=== PATIENT | male | born 1995 | race Caucasian/White ===

== ENCOUNTER 2020-11-22 22:12 | Emergency (ER) | payer SELFPAY ==
[~2020-11-22] VITALS: Ht 177.8 cm; Wt 66.5 kg
[2020-11-22 22:27] VITALS: BP 117/53
[2020-11-22] MEDS ORDERED: METH2.5T PO (22:34)
[2020-11-22] MEDS ORDERED: [UNRECOGNIZED DRUG - CODE] PO (22:34)
[2020-11-22] MEDS ORDERED: TADA20TA43 PO (22:34)
--- NOTE | 2020-11-22 22:34 | ED EENT ---
History of Present Illness General Chief Complaint: Dental Problems/Pain Stated Complaint: DENTAL PAIN Source: patient Exam Limitations: no limitations History of Present Illness Date Seen by Provider: Nov 22, 2020 Time Seen by Provider: 22:10 Initial Comments Patient presents ER by private conveyance with chief complaint of left lower mandibular molar dental abscess swelling and difficulty with food and fluids. He is able to breathe normally. He has been using Tylenol and Motrin and started on antibiotics yesterday has taken 4 doses of Augmentin so far and not seeing improvement. He feels like the swelling around his jaw is a little bigger. He has plans to see a dentist on Tuesday of next week. Primary care by Dr. Leyva. He is on rituximab and methotrexate for dermatomyositis. No fevers nausea vomiting diarrhea. He eats yogurt with active culture routinely. Allergies and Home Medications Allergies Coded Allergies: banana (Verified Allergy, Unknown, 11/22/20) nut - unspecified (Verified Allergy, Unknown, 11/22/20) strawberry (Verified Allergy, Unknown, 11/22/20) Patient Home Medication List Home Medication List Reviewed: Yes Review of Systems Review of Systems Constitutional: No chills, No diaphoresis Eyes: Denies Blindness, Denies Blurred Vision Ears: Denies Dizziness, Denies Pain Nose: denies clots, denies epistaxis, denies pain Mouth: denies clots; pain, swelling Throat: denies pain, denies swelling Respiratory: No cough, No short of breath Past Clpmfil-Uckdqj-Hkxbvk Hx Patient Social History Alcohol Use: Denies Use Smoking Status: Never a Smoker Physical Exam Vital Signs Vital Signs - First Documented 11/22/20 22:27 Temp 37.2 Pulse 80 Resp 16 B/P (MAP) 117/53 (74) Pulse Ox 100 O2 Delivery Room Air Height, Weight, BMI Height: '" Weight: lbs. oz. kg; BMI Method: General Appearance: WD/WN, no apparent distress Eyes: bilateral eye normal inspection, bilateral eye PERRL, bilateral eye EOMI Ears: bilateral ear auricle normal, bilateral ear canal normal, bilateral ear TM normal Nose: normal inspection; No active bleeding Mouth/Throat: dental tenderness; No excessive drooling; mandibular swelling, other (Dental caries with acrylic fillings and proximalmost left mandibular molar has significant caries. There is soft tissue swelling lateral to the left lower portion of the mandible without fluctuance.) Neck: non-tender, full range of motion, supple, normal inspection Cardiovascular: normal peripheral pulses, regular rate, rhythm Respiratory: no respiratory distress, no accessory muscle use Neurologic/Psychiatric: alert, oriented x 3 Skin: normal color, warm/dry Procedures/Interventions Progress Alveolar nerve block left: Using the usual technique and a 25-gauge 1-1/2 inch needle we palpated the landmarks and applied the needle tip at the level of the alveolar nerve where it exits the medial portion of the mandible. We were unable to aspirate any blood so we injected 1/2 cc each of 1% lidocaine and half percent Marcaine. Patient tolerated procedure well. Progress/Results/Core Measures Results/Orders Vital Signs/I&O 11/22/20 22:27 Temp 37.2 Pulse 80 Resp 16 B/P (MAP) 117/53 (74) Pulse Ox 100 O2 Delivery Room Air Progress Progress Note : Time: 22:32 Progress Note Aseptic vital signs with no evidence of systemic disease at this time. Plan to give him a shot of Rocephin and offered a alveolar nerve block which he accepted. We will also give him some viscous lidocaine. Return precautions were discussed. Departure Impression Primary Impression: Dental abscess Disposition: 01 HOME, SELF-CARE Condition: Stable Departure-Patient Inst. Decision time for Depature: 22:40 Referrals: PAUL LEYVA MD (PCP/Family) Primary Care Physician Patient Instructions: Tooth Abscess (DC) Add. Discharge Instructions: You have a collection of bacteria known as an abscess under the tooth of your left mandible. It is difficult for antibiotics to get into this because there are no blood vessels penetrating the abscess and it will take several days for this to calm down. As long as it is not keeping you from swallowing or giving you a hard time breathing it is not an emergency. If it does start to cause swelling all the way down your neck pushing on your throat then you need to return to the ER for further evaluation otherwise expect some improvement over the next couple days on antibiotics. Follow-up with Dr. Leyva in the next couple days and he can reevaluate your dental infection while you are waiting to get in with a dentist for ultimate, surgical cure. You have received a dose of Rocephin/ceftriaxone tonight which will last about 24 hours and should help speed your recovery. Viscous lidocaine applied to gauze every 4 hours over the tooth as necessary to numb the pain. Tylenol 1000 mg every 8 hours as necessary for pain. Ibuprofen 800 mg every 8 hours as necessary for pain. All discharge instructions reviewed with patient and/or family. Voiced un derstanding. Scripts [viscous lidocaine] 2 % EA No Conflict Check 5 ML TOP Q4H PRN for PAIN-BREAKTHROUGH for 3 Days, #100 GM 0 Refills Prov: BARRY SEBASTIAN 11/22/20 BARRY SEBASTIAN Nov 22, 2020 22:34
[2020-11-22] MEDS ORDERED: cefTRIAXone 1,000 MG/2.86 ml vial (IM ONLY) IM STA (22:36)
[2020-11-22] MEDS ORDERED: viscous lidocaine TOP (22:41)
[2020-11-22] MEDS ORDERED: LIDOCAINE 2% VISCOUS 15 ML UDC PO ONE (22:45)
[2020-11-22] MEDS ORDERED: LIDOCAINE 1% INJ 20 ML 20 ML VIAL INJ ONE (22:45)
[2020-11-24] MEDS ORDERED: METH2.5T PO (10:40)
[2020-11-24] MEDS ORDERED: CLIN300C12 PO (10:40)
[2020-11-24] MEDS ORDERED: ACET1TAB43 PO (10:40)
== END 2020-11-22 22:50 | disposition home or self-care (01) ==
LOC: ER FS 22:16
DX: K04.7 Periapical abscess without sinus (principal)
CPT/HCPCS: 99284

== ENCOUNTER 2020-11-23 12:56 | Observation (INO) | payer SELFPAY ==
[~2020-11-23] VITALS: Ht 180 cm; Wt 62.8 kg
[~2020-11-23 12:56] MED LIST: METH2.5T PO; TADA20TA43 PO; [UNRECOGNIZED DRUG - CODE] PO; viscous lidocaine TOP
[2020-11-23] MEDS ORDERED: NS IV 1000 ML 1,000 ML IV STA (13:26)
[2020-11-23] MEDS ORDERED: KETOROLAC 30 MG/ML VIAL IVP STA (13:26)
[2020-11-23] MEDS ORDERED: CLINDAMYCIN 600 MG/50 ML IVPB 50 ML IV STA (13:26)
[2020-11-23] MEDS ORDERED: IOHEXOL 350 MG/ML 100 ML (OMNIPAQUE 350) VIAL IV ONE (13:45)
[2020-11-23] MEDS ORDERED: CATHETER FLUSH 10 ML SYR IV PRN (13:45)
[2020-11-23] MEDS ORDERED: HOLD METFORMIN - RECEIVED CONTRAST 20 ML VIAL IV SCH (13:45)
[2020-11-23] MEDS ORDERED: NS 100 ML (IVPB) BAG IV ONE (13:45)
--- NOTE | 2020-11-23 13:46 | ED EENT ---
History of Present Illness General Chief Complaint: Dental Problems/Pain Stated Complaint: TOOTH PAIN/SWELLING Nursing Triage Note: Patient reports he was seen in the ED last night for a left lower dental abscess, states he was given an antibiotic injection and told to return if his condition worsened. He reports he woke this morning with increased swelling and pain. Source: patient, old records History of Present Illness Date Seen by Provider: Nov 23, 2020 Time Seen by Provider: 12:58 Initial Comments 24-year-old male presenting with worsening pain and swelling to the left mandible and jaw. He was seen last night around 10:30 PM for an abscess and dental pain. He has had 2 days of Augmentin and today is the third day. He was given an IM Rocephin shot as well as a alveolar nerve block. He reports that this morning when he got up he was having increased swelling and pain and difficulty opening his mouth as well as swallowing. He feels like he cannot eat or treated because of the pain. He is concerned that the infection was getting worse. He recently had been on Rituximab and Methotrexate. He is worried that his infection is getting out of control. Timing/Duration: gradual Severity: severe Location: dental (left jaw) Prearrival Treatment: prescription meds Associated Symptoms: No change in hearing, No cough, No drooling, No ear drainage; facial pain/swelling, fever, malaise; No nasal congestion/drainage, No poor fluid intake; poor solids intake (due to pain with trying to chew); No sinus infection, No sore throat; tooth pain; No voice change Allergies and Home Medications Allergies Coded Allergies: banana (Verified Allergy, Unknown, 11/22/20) nut - unspecified (Verified Allergy, Unknown, 11/22/20) strawberry (Verified Allergy, Unknown, 11/22/20) Home Medications [viscous lidocaine] 2 % EA, 5 ML TOP Q4H PRN for PAIN-BREAKTHROUGH Prescribed by: BARRY SEBASTIAN on 11/22/20 7573 Patient Home Medication List Home Medication List Reviewed: Yes Review of Systems Review of Systems Constitutional: fever (subjective), malaise Eyes: No Symptoms Reported Ears: Pain (pain going into left ear) Nose: no symptoms reported Mouth: see HPI Throat: see HPI Respiratory: no symptoms reported Cardiovascular: no symptoms reported Gastrointestinal: no symptoms reported Musculoskeletal: no symptoms reported Skin: No change in color Neurological: Anxiety Hematologic/Lymphatic: No Symptoms Reported Past Yaurzih-Enhdyi-Uzwyfa Hx Past Med/Social Hx: Reviewed Nursing Past Med/Soc Hx Patient Social History Alcohol Use: Denies Use Smoking Status: Never a Smoker 2nd Hand Smoke Exposure: No Recent Infectious Disease Expo: No Recent Hopitalizations: No Seasonal Allergies Seasonal Allergies: No Past Medical History Surgeries: No Respiratory: No Cardiac: No Neurological: Yes Genitourinary: No Gastrointestinal: No Musculoskeletal: No Endocrine: No HEENT: No Cancer: No Psychosocial: No Integumentary: No Blood Disorders: No Physical Exam Vital Signs Vital Signs - First Documented 11/23/20 12:58 Temp 37.8 Pulse 87 Resp 16 B/P (MAP) 119/62 (81) Pulse Ox 98 O2 Delivery Room Air Height, Weight, BMI Height: '" Weight: lbs. oz. kg; 20.00 BMI Method: General Appearance: moderate distress (pt anxious and concerned about swelling to left mandible) Eyes: bilateral eye PERRL, bilateral eye EOMI Ears: bilateral ear auricle normal, bilateral ear canal normal, bilateral ear TM normal Mouth/Throat: pharynx normal, dental tenderness (left side along mandible), ma ndibular swelling; No tonsillar exudate; trismus Neck: supple, other (left submandibular swelling/pain) Cardiovascular: normal peripheral pulses, regular rate, rhythm Respiratory: chest non-tender, lungs clear, normal breath sounds, no respiratory distress, no accessory muscle use Gastrointestinal: normal bowel sounds, soft, no pulsatile mass Neurologic/Psychiatric: alert, oriented x 3 Skin: normal color, warm/dry Progress/Results/Core Measures Results/Orders Lab Results Laboratory Tests Test 11/23/20 13:41 Range/Units White Blood Count 7.1 4.3-11.0 10^3/uL Red Blood Count 4.93 4.35-5.85 10^6/uL Hemoglobin 13.0 L 13.3-17.7 G/DL Hematocrit 40 40-54 % Mean Corpuscular Volume 81 80-99 FL Mean Corpuscular Hemoglobin 26 25-34 PG Mean Corpuscular Hemoglobin Concent 32 32-36 G/DL Red Cell Distribution Width 15.7 H 10.0-14.5 % Platelet Count 194 130-400 10^3/uL Mean Platelet Volume 9.5 7.4-10.4 FL Immature Granulocyte % (Auto) 0 % Neutrophils (%) (Auto) 73 42-75 % Lymphocytes (%) (Auto) 10 L 12-44 % Monocytes (%) (Auto) 9 0-12 % Eosinophils (%) (Auto) 7 0-10 % Basophils (%) (Auto) 0 0-10 % Neutrophils # (Auto) 5.2 1.8-7.8 X 10^3 Lymphocytes # (Auto) 0.7 L 1.0-4.0 X 10^3 Monocytes # (Auto) 0.6 0.0-1.0 X 10^3 Eosinophils # (Auto) 0.5 H 0.0-0.3 10^3/uL Basophils # (Auto) 0.0 0.0-0.1 10^3/uL Immature Granulocyte # (Auto) 0.0 0.0-0.1 10^3/uL Sodium Level 139 135-145 MMOL/L Potassium Level 4.1 3.6-5.0 MMOL/L Chloride Level 104 98-107 MMOL/L Carbon Dioxide Level 27 21-32 MMOL/L Anion Gap 8 5-14 MMOL/L Blood Urea Nitrogen 9 7-18 MG/DL Creatinine 0.45 L 0.60-1.30 MG/DL Estimat Glomerular Filtration Rate > 60 BUN/Creatinine Ratio 20 Glucose Level 112 H 70-105 MG/DL Lactic Acid Level 1.03 0.50-2.00 MMOL/L Calcium Level 9.0 8.5-10.1 MG/DL Corrected Calcium 9.2 8.5-10.1 MG/DL Total Bilirubin 0.3 0.1-1.0 MG/DL Aspartate Amino Transf (AST/SGOT) 143 H 5-34 U/L Alanine Aminotransferase (ALT/SGPT) 113 H 0-55 U/L Alkaline Phosphatase 36 L 40-136 U/L C-Reactive Protein 3.70 H <0.50 MG/DL Total Protein 6.4 6.4-8.2 GM/DL Albumin 3.8 3.2-4.5 GM/DL My Orders Orders - DAVID CARDOZO MD Cbc With Automated Diff (11/23/20 13:24) Comprehensive Metabolic Panel (11/23/20 13:24) Blood Culture (11/23/20 13:24) Ed Iv/Invasive Line Start (11/23/20 13:24) Crp Fs (11/23/20 13:24) Lactic Acid Analyzer (11/23/20 13:24) Ct Maxillofacial W (11/23/20 13:24) Ns Iv 1000 Ml (Sodium Chloride 0.9%) (11/23/20 13:26) Ketorolac Injection (Toradol Injection) (11/23/20 13:26) Clindamycin 600 Mg/50 Ml Ivpb (Cleocin P (11/23/20 13:26) Iohexol Injection (Omnipaque 350 Mg/Ml 1 (11/23/20 13:45) Received Contrast (Hold Metformin- Contr (11/23/20 13:45) Sodium Chloride Flush (Catheter Flush Sy (11/23/20 13:45) Ns (Ivpb) (Sodium Chloride 0.9% Ivpb Bag (11/23/20 13:45) Medications Given in ED Current Medications Medications Dose Ordered Sig/Ilana Route Start Time Stop Time Status Last Admin Dose Admin Iohexol 100 ml ONCE ONCE IV 11/23/20 13:45 11/23/20 13:46 DC 11/23/20 13:50 75 ML Sodium Chloride 10 ml NEEDED PRN IV 11/23/20 13:45 11/23/20 15:44 DC 11/23/20 13:51 10 ML Sodium Chloride 100 ml ONCE ONCE IV 11/23/20 13:45 11/23/20 13:46 DC 11/23/20 13:51 80 ML Vital Signs/I&O 11/23/20 11/23/20 12:58 15:15 Temp 37.8 37.3 Pulse 87 67 Resp 16 18 B/P (MAP) 119/62 (81) 104/53 Pulse Ox 98 98 O2 Delivery Room Air Room Air Blood Pressure Mean: 81 Progress Progress Note #1: Progress Note Advised pt that with increased swelling will check labs with cultures and obtain CT scan to look for abscess. He asked about having the area drained and advised him that when he has been block pulse last night if there was anything to drain it would have happened then. If the CT shows a definite abscess where he needs an oral surgeon then he may need to be transferred to facility that would have oral surgery available. Otherwise give IV fluids for hydration, Toradol for pain and swelling, clindamycin for IV antibiotic. Progress Note #2: Progress Note labs show normal WBC count without left shift. Normal Lactic acid of 1.04. CRP elevated to 3.74. Mild elevation of LFTs. CT scan shows inflammation and infection to left cheek and mandibular area but no definite area to drain. Will check with Dr. Sims for [facility] about admit for IV antibiotics since he is not improving with Augmentin and Rocephin IM as outpatient. Progress Note #3: Progress Note D/w Dr. Sims, rehabilitation program manager provider for [facility], and he accepted pt for observation admit. Will change to Zosyn antibiotic. He is not septic so does not warrant sepsis order set. If needs more than 2 days treatment may be changed to Inpatient instead of observation. Diagnostic Imaging Diagonstic Imaging: CT Plain Films/CT/US/NM/MRI: facial bones Comments NAME: EMILY DE JESUS [facility] REC#: [id number] PT STATUS: REG ER : 1995 PHYSICIAN: DAVID CARDOZO MD ADMIT DATE: 11/23/20/ER FS Draft Date of Exam:11/23/20 CT MAXILLOFACIAL W PROCEDURE: CT maxillofacial with contrast. TECHNIQUE: After intravenous administration of contrast, axial images were obtained through the face and reformatted into coronal and sagittal planes. Auto Exposure Controls were utilized during the CT exam to meet ALARA standards for radiation dose reduction. INDICATION: Left perimandibular and facial swelling. Dental pain. COMPARISON: No relevant comparison available. FINDINGS: The patient is status post bilateral mandibular first molar root canals. There is some periapical lucency about the roots of the left first mandibular molar without evidence of cortical disruption. There is also lucency demonstrated about the roots of the right first maxillary molar which has also had a previous root canal. There is extensive inflammatory soft tissue induration and fat stranding along the lateral aspect of the left face along the lateral margins of the mandible. There is no definable fluid collection or mature abscess. There appear to be phlegmonous changes within the soft tissues. There is no fluid collection evident within the sublingual space or along the floor of the mouth. The base of the tongue is symmetric. There is no mass effect on the airway. There is no displacement of parapharyngeal fat planes. The parotid and submandibular glands are unremarkable. There are few prominent left-sided submandibular and level II lymph nodes that are likely reactive in nature. There is no air-fluid level present within the paranasal sinuses. There is some minimal mucosal thickening in the right maxillary sinus. There is a left-sided nasal ring. The orbital contents are unremarkable. The mastoids and middle ears appear clear. IMPRESSION: 1. Diffuse soft tissue inflammation with phlegmonous changes within the soft tissues about the left face and left mandible. There is no definable fluid collection to suggest a drainable abscess. 2. There is no involvement of the floor of the mouth or mass effect on the airway. 3. Mild reactive left level I and level II lymphadenopathy. 4. Minimal mucosal thickening in the right maxillary sinus. 5. Multiple prior root canals including right maxillary molars and both of the first mandibular molars. There are findings of periapical lucency about the roots of the left first mandibular molar. There is no evidence of cortical breakthrough. Dictated on workstation # [id number] Dict: 11/23/20 1357 Trans: 11/23/20 1419 [id number] [id number] Interpreted by: KERRIE LAZO MD Electronically signed by: Departure Communication (Admissions) Time/Spoke to Admitting Phy: 14:34 d/w Dr. Sims for the [facility] since pt follows with Dr. Leyva. With not responding to outpatient antibiotic completely and having worsening pain/swelling without definite area to drain for abscess on CT will admit for IV antibiotic. Dr. Sims requested to switch pt to Zosyn from clindamycin. Impression Primary Impression: Dental abscess Additional Impressions: Mandibular swelling Pain due to dental caries Disposition: 30 STILL A PATIENT Condition: Stable Admissions Decision to Admit Reason: Admit from ER (General) Decision to Admit/Date: Nov 23, 2020 Time/Decision to Admit Time: 14:34 Departure-Patient Inst. Referrals: PAUL LEYVA MD (PCP/Family) Primary Care Physician Images Head/Face 1 - Swelling (swelling and pain to palpation and movement of left mandible and cheek), Tenderness DAVID CARDOZO MD Nov 23, 2020 13:46
[2020-11-23 13:51] LABS: BASOPHILS % (AUTO) 0 % (0-10); EOSINOPHILS % (AUTO) 7 % (0-10); HEMATOCRIT 40 % (40-54); LYMPHOCYTES # (AUTO) 0.7 X 10^3 (1.0-4.0); LYMPHOCYTES % (AUTO) 10 % (12-44); MEAN CORPUSCULAR HEMOGLOBIN 26 PG (25-34); MEAN CORPUSCULAR HGB CONC 32 G/DL (32-36); MEAN CORPUSCULAR VOLUME 81 FL (80-99); MEAN PLATELET VOLUME 9.5 FL (7.4-10.4); MONOCYTES % (AUTO) 9 % (0-12); NEUTROPHILS # (AUTO) 5.2 X 10^3 (1.8-7.8); NEUTROPHILS % (AUTO) 73 % (42-75); PLATELET COUNT 194 10^3/uL (130-400); WHITE BLOOD COUNT 7.1 10^3/uL (4.3-11.0)
[2020-11-23 13:52] LABS: EOSINOPHILS # (AUTO) 0.5 10^3/uL (0.0-0.3); MONOCYTES # (AUTO) 0.6 X 10^3 (0.0-1.0)
[2020-11-23 14:06] LABS: ALKALINE PHOSPHATASE 36 U/L (40-136); BILIRUBIN,TOTAL 0.3 MG/DL (0.1-1.0); BUN/CREATININE RATIO 20; CARBON DIOXIDE 27 MMOL/L (21-32); CHLORIDE 104 MMOL/L (98-107); CREATININE SERUM 0.45 MG/DL (0.60-1.30); GFR ESTIMATED > 60; GLUCOSE 112 MG/DL (70-105); POTASSIUM 4.1 MMOL/L (3.6-5.0); SODIUM 139 MMOL/L (135-145)
[2020-11-23 14:07] LABS: ALANINE AMINOTRANSFERASE 113 U/L (0-55); ALBUMIN 3.8 GM/DL (3.2-4.5); TOTAL PROTEIN 6.4 GM/DL (6.4-8.2)
--- NOTE | 2020-11-23 14:19 | Diagnostic Imaging Report ---
PROCEDURE: CT maxillofacial with contrast. TECHNIQUE: After intravenous administration of contrast, axial images were obtained through the face and reformatted into coronal and sagittal planes. Auto Exposure Controls were utilized during the CT exam to meet ALARA standards for radiation dose reduction. INDICATION: Left perimandibular and facial swelling. Dental pain. COMPARISON: No relevant comparison available. FINDINGS: The patient is status post bilateral mandibular first molar root canals. There is some periapical lucency about the roots of the left first mandibular molar without evidence of cortical disruption. There is also lucency demonstrated about the roots of the right first maxillary molar which has also had a previous root canal. There is extensive inflammatory soft tissue induration and fat stranding along the lateral aspect of the left face along the lateral margins of the mandible. There is no definable fluid collection or mature abscess. There appear to be phlegmonous changes within the soft tissues. There is no fluid collection evident within the sublingual space or along the floor of the mouth. The base of the tongue is symmetric. There is no mass effect on the airway. There is no displacement of parapharyngeal fat planes. The parotid and submandibular glands are unremarkable. There are few prominent left-sided submandibular and level II lymph nodes that are likely reactive in nature. There is no air-fluid level present within the paranasal sinuses. There is some minimal mucosal thickening in the right maxillary sinus. There is a left-sided nasal ring. The orbital contents are unremarkable. The mastoids and middle ears appear clear. IMPRESSION: 1. Diffuse soft tissue inflammation with phlegmonous changes within the soft tissues about the left face and left mandible. There is no definable fluid collection to suggest a drainable abscess. 2. There is no involvement of the floor of the mouth or mass effect on the airway. 3. Mild reactive left level I and level II lymphadenopathy. 4. Minimal mucosal thickening in the right maxillary sinus. 5. Multiple prior root canals including right maxillary molars and both of the first mandibular molars. There are findings of periapical lucency about the roots of the left first mandibular molar. There is no evidence of cortical breakthrough. Dictated by: Dictated on workstation # [id number]
[2020-11-23 16:45] VITALS: BP 112/54
[2020-11-23] MEDS ORDERED: NS IV 1000 ML 1,000 ML ONE (17:00)
[2020-11-23] MEDS: NS IV 1000 ML 1,000 ML IV SCH (17:22)
[2020-11-23] MEDS ORDERED: ONDANSETRON 4 MG/2 ML (SDV) Z0FRAN IVP PRN (17:45)
[2020-11-23 18:00] VITALS: BP 110/58
[2020-11-23] MEDS ORDERED: HYDROcodone/APAP 5 MG/325 MG (LORTAB) TAB PO PRN (18:00)
[2020-11-23] MEDS ORDERED: morphine INJ 4 MG/ML 1 ML (VIAL/SYRINGE) IV PRN (18:00)
[2020-11-23] MEDS ORDERED: PIPERACILLIN/TAZO 4.5 GM VIAL (ZOSYN) IV ONE ×2 (18:23→18:24)
[2020-11-23] MEDS ORDERED: NS (IVPB) 200 ML ONE (18:25)
[2020-11-23] MEDS: PIPERACILLIN/TAZO 4.5 GM/NS 100 ML IV SCH ×2 (18:43)
[2020-11-23 20:46] VITALS: BP 110/54
[2020-11-23] MEDS: APAP 300 MG/CODEINE 30 MG (TYLENOL #3) TAB PO PRN (21:03)
[2020-11-23] MEDS: IBUPROFEN 600 MG (MOTRIN) TAB PO SCH (21:58)
[2020-11-23 23:47] VITALS: BP 103/53
[2020-11-24] MEDS: APAP 300 MG/CODEINE 30 MG (TYLENOL #3) TAB PO PRN ×2 (01:47→08:46)
[2020-11-24] MEDS: PIPERACILLIN/TAZO 4.5 GM/NS 100 ML IV SCH ×4 (01:47→09:22)
[2020-11-24] MEDS: NS IV 1000 ML 1,000 ML IV SCH ×2 (01:48→08:46)
[2020-11-24 03:26] VITALS: BP 105/57
[2020-11-24] MEDS: IBUPROFEN 600 MG (MOTRIN) TAB PO SCH (05:17)
[2020-11-24 06:02] LABS: BASOPHILS % (AUTO) 1 % (0-10); EOSINOPHILS # (AUTO) 0.4 10^3/uL (0.0-0.3); EOSINOPHILS % (AUTO) 9 % (0-10); HEMATOCRIT 37 % (40-54); HEMOGLOBIN 11.6 g/dL (13.3-17.7); LYMPHOCYTES # (AUTO) 0.8 10^3/uL (1.0-4.0); LYMPHOCYTES % (AUTO) 18 % (12-44); MEAN CORPUSCULAR HEMOGLOBIN 26 pg (25-34); MEAN CORPUSCULAR HGB CONC 31 g/dL (32-36); MEAN CORPUSCULAR VOLUME 84 fL (80-99); MEAN PLATELET VOLUME 10.2 fL (9.0-12.2); MONOCYTES # (AUTO) 0.6 10^3/uL (0.0-1.0); MONOCYTES % (AUTO) 13 % (0-12); NEUTROPHILS # (AUTO) 2.6 10^3/uL (1.8-7.8); NEUTROPHILS % (AUTO) 59 % (42-75); PLATELET COUNT 129 10^3/uL (130-400); WHITE BLOOD COUNT 4.3 10^3/uL (4.3-11.0)
[2020-11-24 06:27] LABS: ALBUMIN 3.1 GM/DL (3.2-4.5); CHLORIDE 112 MMOL/L (98-107); POTASSIUM 3.9 MMOL/L (3.6-5.0); SODIUM 141 MMOL/L (135-145)
[2020-11-24 06:28] LABS: CALCIUM 7.7 MG/DL (8.5-10.1)
[2020-11-24 06:29] LABS: GLUCOSE 76 MG/DL (70-105); TOTAL PROTEIN 5.6 GM/DL (6.4-8.2)
[2020-11-24 06:30] LABS: CARBON DIOXIDE 20 MMOL/L (21-32)
[2020-11-24 06:31] LABS: BILIRUBIN,TOTAL 0.3 MG/DL (0.1-1.0)
[2020-11-24 06:33] LABS: ALKALINE PHOSPHATASE 30 U/L (40-136); GFR ESTIMATED > 60
[2020-11-24 06:34] LABS: BUN/CREATININE RATIO 15
[2020-11-24 06:36] LABS: ALANINE AMINOTRANSFERASE 97 U/L (0-55)
[2020-11-24 07:47] VITALS: BP 100/53
[2020-11-24] MEDS ORDERED: ACET325T38 PO (10:19)
--- NOTE | 2020-11-24 10:33 | Short Stay Summary-Hospitalist ---
[facility] 11/24/20 1033: History of Present Illness HPI/Chief Complaint Nik Lawrence is a 24 y/o male that was admitted for short stay services due to failed outpatient treatment for potential abscess with inflammation of the left mandible. PMH of dermatomyositis. He was on Augmentin while an outpatient and received alveolar block in the ER by the previous day. He continued to have pain that could not be managed at home with ibuprofen and Tylenol with poor nutritional intake. He complained of pain in his neck while at home, but this has since resolved once starting IV antibiotics. He denies associated difficulties with swallowing or pooling of saliva in the back of his throat. No changes in voices. Denies eye pain or difficulty with eye movements. He is able to tolerate diet. He states he is feeling much better. Denies Chest pain, SOB, abdominal pain, dysuria, constipation, dizzinesses or vision changes at this time. Source: patient Exam Limitations: no limitations Date Seen 11/24/20 Time Seen by a Provider: 09:20 Attending Physician Lissette Wu DO PCP Self,[facility] Referring Physician Date of Admission Nov 23, 2020 at 16:40 Home Medications & Allergies Home Medications Reviewed patient Home Medication Reconciliation performed by pharmacy medication reconciliations ekg technician and/or nursing. Patients Allergies have been reviewed. Allergies Allergies Coded Allergies banana (Verified Allergy, Unknown, 11/22/20) nut - unspecified (Verified Allergy, Unknown, 11/22/20) strawberry (Verified Allergy, Unknown, 11/22/20) Past Xdrxvoi-Cfrils-Vunsbm Hx Past Med/Social Hx: Reviewed Nursing Past Med/Soc Hx Patient Social History Alcohol Use: Denies Use Recreational Drug Use: No Smoking Status: Former Smoker 2nd Hand Smoke Exposure: No Recent Foreign Travel: No Contact w/other who traveled: No Recent Hopitalizations: No Recent Infectious Disease Expo: No Seasonal Allergies Seasonal Allergies: No Past Medical History History of Blood Disorders: No Review of Systems Constitutional: no symptoms reported EENTM: dental problems, mouth pain (improved, left mandible), mouth swelling (minimal); No blurred vision, No double vision, No hoarseness, No throat pain, No throat swelling Respiratory: no symptoms reported Cardiovascular: no symptoms reported Gastrointestinal: no symptoms reported Genitourinary: no symptoms reported Musculoskeletal: no symptoms reported Skin: no symptoms reported Psychiatric/Neurological: No Symptoms Reported Physical Exam Physical Exam Vital Signs Vital Signs - First Documented 11/23/20 12:58 Temp 37.8 Pulse 87 Resp 16 B/P (MAP) 119/62 (81) Pulse Ox 98 O2 Delivery Room Air Capillary Refill : Less Than 3 Seconds Height, Weight, BMI Height: '" Weight: lbs. oz. kg; 19.38 BMI Method: General Appearance: No Apparent Distress, Thin Eyes: Bilateral Eye PERRL, Bilateral Eye EOMI HEENT: PERRL/EOMI (no pain with movement), Moist Mucous Membranes; No Pharyngeal Erythema, No Photophobia, No Tonsillar Exudate, No Tonsillar Enla rgement; Other (minimal erythema noted on left side, no cobblestone, no uvula shift, no exudate, moist mucous membranes, CN 2-12 Intact BL. ) Neck: Full Range of Motion, Non Tender Respiratory: Chest Non Tender, No Accessory Muscle Use, No Respiratory Distress Cardiovascular: Regular Rate, Rhythm, No Edema, Normal Peripheral Pulses Gastrointestinal: Normal Bowel Sounds, Non Tender, Soft Extremity: Normal Capillary Refill, Non Tender, No Calf Tenderness Neurologic/Psychiatric: Alert, Oriented x3 Skin: Normal Color, Warm/Dry Lymphatic: No Adenopathy Results Results/Procedures Labs Laboratory Tests 11/23/20 13:41 11/24/20 05:22 Patient resulted labs reviewed. Imaging: Reviewed Imaging Films Short Stay Diagnosis Discharge Diagnosis-Short Stay Admission Diagnosis Soft tissue Infection of left mandible Elevated Liver enzymes Uncontrolled Pain Poor Nutritional Intake PMH of Dermatomyositis Conclusion Plan Soft tissue Infection of left mandible Elevated Liver enzymes Uncontrolled Pain Poor Nutritional Intake PMH of Dermatomyositis 1. Follow up with Dentist 2. Continue nutritional intake 3. 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 Continue abx and pain management LISSETTE WU DO 11/25/20 0610: History of Present Illness HPI/Chief Complaint CC: Left facial pain HPI: This is a 24yoWM history of dermatomyositis who is on immunosuppressants who presents to the hospital with left-sided facial pain and tooth abscess, he had been on Augmentin prior to coming in and was placed on Zosyn and Flagyl and CT scan did not show any type of abscess, he is getting good pain relief from Tylenol #3. We will arrange a dental appointment either this afternoon or tomorrow for definitive treatment of the abscess and will discharge him today. Source: patient Exam Limitations: no limitations Past Rkwrhpk-Lwjkkb-Fqbffu Hx Past Med/Social Hx: Reviewed Nursing Past Med/Soc Hx, Reviewed and Corrections made Patient Social History Marrital Status: cohabiting Employed/Student: unemployed Alcohol Use: Denies Use Smoking Status: Unknown if Ever Smoked Past Medical History dermatomyositis Review of Systems Constitutional: see HPI Physical Exam Physical Exam General Appearance: No Apparent Distress, WD/WN HEENT: Other (minimal erythema noted on left side, no cobblestone, no uvula shift, no exudate, moist mucous membranes, CN 2-12 Intact BL. ) Short Stay Diagnosis Discharge Diagnosis-Short Stay Admission Diagnosis Left mandible cellulitis Final Discharge Diagnosis Left mandible cellulitis Conclusion Plan DC home after dental clinic appt obtained Diagnosis/Problems Diagnosis/Problems (1) Dental abscess Status: Acute (2) Mandibular swelling Status: Acute Supervisory-Addendum Brief Verification & Attestation Participated in pt care: history, MDM, physical Personally performed: exam, history, MDM, supervision of care Care discussed with: Medical Student Procedures: n/a Results interpretation: Verified all documentation Verification and Attestation of Medical Student E/M Service A medical student performed and documented this service in my presence. I revi ewed and verified all information documented by the medical student and made modifications to such information, when appropriate. I personally performed the physical exam and medical decision making. Lissette Wu Nov 25, 2020,06:09 [facility] Nov 24, 2020 10:33 LISSETTE WU DO Nov 25, 2020 06:10
[2020-11-24] MEDS ORDERED: ACET1TAB43 PO (10:40)
[2020-11-24] MEDS ORDERED: CLIN300C12 PO (10:40)
[2020-11-24] MEDS ORDERED: METH2.5T PO (10:40)
[2020-11-24] MEDS ORDERED: ACETAMINOPHEN 325 MG TABLET PO PRN (10:45)
[2020-11-24 11:00] VITALS: BP 100/53
== END 2020-11-24 10:36 | disposition home or self-care (01) ==
LOC: EDUNIT# 12:56 → ER FS 12:58 → 4TH 16:40 → UNDOADMOB 16:40 → 4TH 16:45 → UNDODISOB 11-24 11:05
PROVIDERS: ADMIT Internal Medicine; ATTEND Internal Medicine
DX: K12.2 Cellulitis and abscess of mouth (principal); M27.2 Inflammatory conditions of jaws; R94.5 Abnormal results of liver function studies; D84.9 Immunodeficiency, unspecified; E63.9 Nutritional deficiency, unspecified; Z91.018 Allergy to other foods; Z87.891 Personal history of nicotine dependence
CPT/HCPCS: 36415; 70487; 80053 ×2; 83605; 85025 ×2; 86141; 87040; 99284; G0378